=== PATIENT | female | born 1940 ===

== ENCOUNTER 2017-04-15 15:01 | Outpatient (CLI) | payer MEDICARE ==
--- NOTE | 2017-04-15 15:31 | Mammography Report ---
LEFT DIGITAL DIAGNOSTIC MAMMOGRAM with CAD: 04/15/17 15:01:00 CLINICAL: Follow-up of a 5 mm circumscribed nodule or lymph node.. COMPARISON:08/14/16 and 02/01/16 FINDINGS: The previously described 5 mm circumscribed nodular lymph node is stable and has been stable for over one year. No new mass, architectural distortion or suspicious calcifications. IMPRESSION: No mammographic evidence of malignancy. BI-RADS CATEGORY: 2 -- Benign RECOMMENDATION: Return to routine mammographic screening. ACR BI-RADS MAMMOGRAPHIC CODES: 0 = Needs additional imaging evaluation; 1 = Negative; 2 = Benign; 3 = Probably benign; 4 = Suspicious; 5 = Malignant; 6 = Known biopsy-proven malignancy COMMENT: 1. Dense breast tissue, i.e., adenosis, fibrocystic changes, etc., may obscure an underlying neoplasm. 2. Approximately 10% of cancers are not detected with mammography. 3. A negative mammography report should not delay biopsy if a clinically suspicious mass is present. COMMENT: Patient follow-up letters are generated by our [employer] application.
== END 2017-04-15 15:02 | disposition home or self-care (01) ==
LOC: SPVWC 15:01
PROVIDERS: ATTEND Internal Medicine Endocrinology, Diabetes & Metabolism
DX: R92.8 Other abnormal and inconclusive findings on diagnostic imaging of breast (principal)
CPT/HCPCS: G0206-LT

== ENCOUNTER 2017-08-28 10:11 | Outpatient (CLI) | payer MEDICARE ==
--- NOTE | 2017-08-28 13:32 | Ultrasound Report ---
RIGHT UPPER QUADRANT ABDOMINAL ULTRASOUND: 08/28/17 10:11:00 CLINICAL: Elevated liver enzymes. FINDINGS: High-resolution ultrasound demonstrated a small liver with surface nodularity and heterogeneous echo pattern suggestive of cirrhosis. No liver mass. Normal hepatic vasculature and inferior vena cava. A gallbladder was not identified. Normal intrahepatic and extra hepatic bile ducts. The common bile duct measures 3 mm mm diameter. The pancreas was well imaged and normal. Normal upper abdominal aorta. The right kidney is normal and measures 9.7 x 5.1 x 5.3cm. No ascites or mass. IMPRESSION: 1. Changes in the liver are suggestive of hepatic cirrhosis. 2. No signs of portal hypertension. 3. No gallbladder identified. 4. Normal bile ducts and pancreas.
== END 2017-08-28 10:12 | disposition home or self-care (01) ==
LOC: SPVWC 10:11
PROVIDERS: ATTEND Internal Medicine
DX: R74.8 Abnormal levels of other serum enzymes (principal)
CPT/HCPCS: 76705